=== PATIENT | male | born 1950 | race Caucasian/White ===

== ENCOUNTER 2016-11-03 14:31 | Emergency (ER) | payer SELFPAY ==
[~2016-11-03] VITALS: Ht 170.2 cm; Wt 90.0 kg
[~2016-11-03 14:31] MED LIST: AMLO-218 PO; BENA20TA48 PO; IBUP-1542 PO
[2016-11-03 15:00] VITALS: Ht 170.2 cm; Wt 90.0 kg
== END 2016-11-03 14:55 | disposition left against medical advice (07) ==
LOC: E/R 14:31
DX: Z53.21 Procedure and treatment not carried out due to patient leaving prior to being seen by health care provider (principal)